=== PATIENT | male | born 1935 | race Hispanic/Latino ===

== ENCOUNTER 2019-01-02 16:18 | Inpatient (IN) | payer MEDICARE ==
[2019-01-02 17:54] LABS: BASO # 0.02 K/mm3 (0.0-2.0); BASO % 0.3 % (0.0-3.0); EOS # 0.1 (0.0-0.7); HEMOGLOBIN 15.7 g/dL (14.0-18.0); LYMPH # 1.1 (1.2-3.4); LYMPH % 16.6 % (22.0-35.0); MEAN CELL VOLUME 98.7 fl (80.0-105.0); MEAN CORPUSCULAR HEMOGLOBIN 33.8 pg (25.0-35.0); MEAN CORPUSCULAR HGB CONC 34.2 g/dl (31.0-37.0); MONO # 0.7 (0.1-0.6); MONO % 10.8 % (1.0-6.0); RBC 4.65 10^6/uL (3.5-6.1); RED CELL DISTRIBUTION WIDTH 12.8 % (11.5-14.5); WHITE BLOOD COUNT 6.5 10^3/uL (4.5-11.0)
[2019-01-02 18:06] LABS: ALB/GLOB RATIO 1.2 (1.1-1.8); ALBUMIN 4.2 g/dL (3.0-4.8); AST/SGOT 37 U/L (17-59); BLOOD UREA NITROGEN 15 mg/dL (7-21); GFR NON-AFRICAN AMERICAN > 60
[2019-01-02 18:07] LABS: INR 1.1; PROTHROMBIN TIME 12.2 SECONDS (9.4-12.5)
--- NOTE | 2019-01-02 18:08 | ED PDOC ---
Arrival/HPI - General Chief Complaint: Syncope Time Seen by Provider: 01/02/19 16:29 Historian: Patient - History of Present Illness Narrative History of Present Illness (Text): 01/02/19 18:02 83yo male with unknown pmhx bib EMS for complaint of syncope. Patient states he went to a pub to drink and after one and half bottle of beer he couldn't remember what happened, because he had a syncopal episode. States he had syncopal episode few months ago and was taken to [facility]. states he doesn't see a Doctor and not sure if he have any medical history. Other than chronic back pain he denies any current focal somatic complaint. Denies chest pain, palpiation, dizziness, nausea, abdominal pain, fever, chills, any other complaint. Past Medical History - Provider Review Nursing Documentation Reviewed: Yes - Psychiatric Hx Substance Use: No - Anesthesia Hx Anesthesia: No Hx Anesthesia Reactions: No Hx Malignant Hyperthermia: No Family/Social History - Physician Review Nursing Documentation Reviewed: Yes Family/Social History: Unknown Family HX Smoking Status: Light Smoker < 10 Cigarettes Daily Hx Alcohol Use: Yes Hx Substance Use: No Allergies/Home Meds Allergies/Adverse Reactions: Allergies No Known Allergies Allergy (Verified 01/02/19 16:37) Review of Systems - Physician Review All systems were reviewed & negative as marked: Yes - Review of Systems Constitutional: Normal Eyes: Normal ENT: Normal Respiratory: Normal Cardiovascular: Normal Gastrointestinal: Normal Genitourinary Male: Normal Musculoskeletal: Normal Skin: Normal Neurological: Other (Syncope) Endocrine: Normal Hemo/Lymphatic: Normal Psychiatric: Normal Physical Exam Vital Signs Reviewed: Yes Vital Signs Temp Pulse Resp BP Pulse Ox 01/02/19 16:36 97.9 F 82 18 146/76 95 Temperature: Afebrile Blood Pressure: Normal Pulse: Regular Respiratory Rate: Normal Appearance: Positive for: Well-Appearing, Non-Toxic, Comfortable Pain Distress: None Mental Status: Positive for: Alert and Oriented X 3 - Systems Exam Head: Present: Atraumatic, Normocephalic Pupils: Present: PERRL Extroacular Muscles: Present: EOMI Conjunctiva: Present: Normal Mouth: Present: Moist Mucous Membranes Neck: Present: Normal Range of Motion Respiratory/Chest: Present: Clear to Auscultation, Good Air Exchange. No: Respiratory Distress, Accessory Muscle Use Cardiovascular: Present: Regular Rate and Rhythm, Normal S1, S2. No: Murmurs Abdomen: No: Tenderness, Distention, Peritoneal Signs Back: Present: Normal Inspection Upper Extremity: Present: Normal Inspection. No: Cyanosis, Edema Lower Extremity: Present: Normal Inspection. No: Edema Neurological: Present: GCS=15, CN II-XII Intact, Speech Normal Skin: Present: Warm, Dry, Normal Color. No: Rashes Psychiatric: Present: Alert, Oriented x 3, Normal Insight, Normal Concentration Medical Decision Making ED Course and Treatment: 01/02/19 18:21 83yo male bib EMS for syncopal episode this afternoon. Pt was neurologically intact. He reported history of syncope few months ago and was seen at [facility]. Unable to remember what happened. He doesn't see a Doctor. Reported one episode of vomiting enroute to the ED. He otherwise denies any somatic complaint. EKG A-fib with PVC @ 86bpm. N-stemi PT denies history of Afib, He will be admitted for new onset A-fib and further neuro evaluation as a cause of his syncope. Labs Head CT CXR Labs was all unremarkable CXR NAD Head CT pending Case was LUDMILA Gonsalez while he was in ED and he saw pt by the bedside and accepted pt for admission. He requested Drs. Pal and Yordy consult. 01/02/2019 20:[address] IMPRESSION: 1. 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 2. There are two meningeal-based mass lesions versus foci of active hemorrhage seen within the subdural collection. 3. A small chronic right frontal subdural hematoma is noted. 4. Severe chronic microvascular disease. 5. Moderate-advanced age appropriate cerebral/cerebellar atrophy. 6. Atherosclerotic vascular plaquing within the carotid siphons bilaterally. Dictator: Graham Tabor MD 01/03/19 01:[address] findings was LUDMILA Beauchamp at 1938, Neurosurgeon relationship manager. He states they is nothing to do at this time. States he will recommend that pt should not be anticoagulated. PT remain AAO x3 and neurologically intact in ED Fingins was also LUDMILA Gonsalez and Dr. Benson. Dr. Benson recommends MRI in the morning. - RAD Interpretation Radiology Orders: 01/02/19 16:48 HEAD W/O CONTRAST [CT] Stat 01/02/19 16:49 CHEST PORTABLE [RAD] Stat Disposition/Present on Arrival - Present on Arrival Any Indicators Present on Arrival: No History of DVT/PE: No History of Uncontrolled Diabetes: No Urinary Catheter: No History of Decub. Ulcer: No History Surgical Site Infection Following: None - Disposition Have Diagnosis and Disposition been Completed?: Yes Diagnosis: Syncope, New onset a-fib, Subdural hematoma Disposition: HOSPITALIZED Disposition Time: 18:10 Patient Plan: Admission Patient Problems: Current Active Problems Problem Status Onset New onset a-fib Acute Subdural hematoma Acute Syncope Acute Condition: GUARDED
[2019-01-02 18:10] LABS: ALT/SGPT < 6 U/L (7-56)
[2019-01-02 18:17] LABS: TROPONIN I 0.02 ng/mL
[2019-01-02 20:58] LABS: PH,URINE 5.5 (4.7-8.0); URINE BILIRUBIN SMALL (NEGATIVE); URINE BLOOD NEGATIVE (NEGATIVE); URINE GLUCOSE (UA) NEGATIVE (NEGATIVE); URINE LEUKOCYTE ESTERASE NEGATIVE Leu/uL (NEGATIVE); URINE PROTEIN TRACE mg/dL (<30 mg/dL)
[2019-01-02 20:59] LABS: URINE APPEARANCE CLEAR (CLEAR); URINE COLOR DARK YELLOW (YELLOW)
[2019-01-02 21:17] LABS: BARBITURATES, UR NEGATIVE (NEGATIVE); BENZODIAZEPINES, UR NEGATIVE (NEGATIVE); OPIATES, UR NEGATIVE (NEGATIVE); PHENCYCLIDINE, UR NEGATIVE (NEGATIVE)
--- NOTE | 2019-01-02 23:46 | HP ---
DATE OF EXAM: 01/02/2019 HISTORY OF PRESENT ILLNESS: He is a nice 83-year-old man who had a syncopal episode after he had a drink at the pub. He could not remember what happened. He did have a syncopal episode a few months ago at [facility], but does not remember what they did either. He has history of chronic back pain from time to time, somatic complaints. Otherwise, he is fairly comfortable. SOCIAL HISTORY: He still smokes cigarettes. Does drink alcohol. No drugs. FAMILY HISTORY: Unknown. He has got really no history of himself that he knows of. Does not see doctors. REVIEW OF SYSTEMS: No acute vision or hearing changes. No shortness of breath. No cough. No chest pain or palpitations. No nausea, vomiting, constipation, or diarrhea. No problems going to the bathroom. No skin issues that he knows of. He had a syncopal episode. He is not dizzy now. He is not anxious. PHYSICAL EXAMINATION: VITAL SIGNS: Temperature 97.9, pulse 82, respiratory rate 18, blood pressure 146/76, and O2 sat 95%. GENERAL: He is well appearing, nontoxic, comfortable. Alert and oriented x3. HEENT: Head is atraumatic and normocephalic. Extraocular muscles are intact. Pupils equal and reactive to light and accommodation. Throat is moist. tongue midline. NECK: Supple. Thyroid midline. No palpable lymphadenopathy. HEART: Regular rate. Normal S1 and S2. LUNGS: Decreased breath sounds but clear to auscultation. ABDOMEN: Soft and nontender. Positive bowel sounds. No guarding, no rebound or CVA tenderness. EXTREMITIES: No edema. NEUROLOGIC: GCS 15. Cranial nerves II through XII grossly intact. Speech is normal. Alert and oriented x3. SKIN: Warm and dry. No apparent rashes or ulcers. DIAGNOSTIC DATA: He had some tests done. EKG shows AFib at 86 questionable NSTEMI history. He does not know anything about it. He has a CAT scan of the head that is pending. Chest x-ray was pending. He had some blood tests done. White count 6.5, hemoglobin 15.7, hematocrit 45.9, and platelets 201. INR is 1.1. Sodium 136, potassium 4.4, BUN 15, creatinine 1, GFR is greater than 60, sugar is 132, calcium 10, phosphorous 4.3, magnesium 2, total bili is 1.2, AST is 37, ALT is 6, alk phos is 79, and lactate dehydrogenase 380. Total creatine kinase is 59. Troponin I is 0.02, total protein 7.6, albumin is 4.2. Toxicology; alcohol level less than 10. IMPRESSION AND PLAN: He is going to have consults with Cardiology and Neurology. We will put him on a heart healthy diet, he will be on observation, we will put him on the monitor. He is here for syncopal episode and atrial fibrillation, and we will watch him very closely. We are waiting for the rest of tests to come back. Andres Gonsalez DO MTDD
[2019-01-03 00:57] VITALS: BMI 23.1
--- NOTE | 2019-01-03 04:21 | CP.PCM.PCO ---
<Glenys Yuan - Last Filed: 01/03/19 04:19> Addendum Addendum: 01/03/19 04:19 Update: Received Page from nurse regarding Patient with A-fib regarding EKG results: QRS pause of 2.02 seconds. Went to evaluate the Patient who is hemodynamically stable, and who is sleeping comfortably. Continue to monitor. Discussed with Dr. Stewart Yuan PGY1 <Gracie William - Last Filed: 01/04/19 06:22> Attending/Attestation - Attestation I have personally seen and examined this patient.: No I have fully participated in the care of the patient.: Yes I have reviewed all pertinent clinical information: Yes
[2019-01-03 07:31] LABS: HEMOGLOBIN 14.8 g/dL (14.0-18.0); MEAN CORPUSCULAR HEMOGLOBIN 33.4 pg (25.0-35.0); MEAN CORPUSCULAR HGB CONC 34.1 g/dl (31.0-37.0); MEAN PLATELET VOLUME 9.1 fl (7.0-11.0); RBC 4.43 10^6/uL (3.5-6.1); RED CELL DISTRIBUTION WIDTH 12.8 % (11.5-14.5); WHITE BLOOD COUNT 6.2 10^3/uL (4.5-11.0)
[2019-01-03 08:01] LABS: ALB/GLOB RATIO 1.2 (1.1-1.8); ALBUMIN 3.9 g/dL (3.0-4.8); ALT/SGPT 10 U/L (7-56); AST/SGOT 30 U/L (17-59); BLOOD UREA NITROGEN 15 mg/dL (7-21); CALCIUM 9.6 mg/dL (8.4-10.5); GFR NON-AFRICAN AMERICAN > 60
--- NOTE | 2019-01-03 08:25 | CARD ---
APPROVED REPORT Date of service: 01/02/2019 EKG Measurement Heart [id number] <Conclusion> Atrial fibrillation with premature ventricular or aberrantly conducted complexes Cannot rule out Inferior infarct, age undetermined Abnormal ECG
--- NOTE | 2019-01-03 08:29 | CT ---
Date of service: 01/02/2019 PROCEDURE: CT HEAD WITHOUT CONTRAST. HISTORY: AMS COMPARISON: None available. TECHNIQUE: Axial computed tomography images were obtained through the head/brain without intravenous contrast. Radiation dose: Total exam DLP = 896.41 mGy-cm. This CT exam was performed using one or more of the following dose reduction techniques: Automated exposure control, adjustment of the mA and/or kV according to patient size, and/or use of iterative reconstruction technique. FINDINGS: HEMORRHAGE: Mixed acute/chronic left frontal parietal subdural hematoma measuring roughly 6.6 by 10 point 0 millimeters. Mild mass-effect upon the left frontal and parietal lobe. Question old right frontal subdural hematoma. BRAIN: Mild atrophy. VENTRICLES: Unremarkable. No hydrocephalus. CALVARIUM: Unremarkable. PARANASAL SINUSES: Unremarkable as visualized. No significant inflammatory changes. MASTOID AIR CELLS: Unremarkable as visualized. No inflammatory changes. OTHER FINDINGS: None. IMPRESSION: Mixed acute/chronic left frontal parietal subdural hematoma measuring roughly 6.6 by 10 point 0 millimeters. Mild mass-effect upon the left frontal and parietal lobe. Question old right frontal subdural hematoma.
--- NOTE | 2019-01-03 09:25 | PN ---
DATE: 01/03/2019 SUBJECTIVE: He is resting comfortably in bed, slept fairly well. He is eating okay. He still is a little bit dizzy now and then. OBJECTIVE: VITAL SIGNS: He has a 97.7 temperature, 78 pulse 146/86 blood pressure, 18 respiratory rate, 94% O2 sat on room air. HEENT: Head is atraumatic, normocephalic. HEART: Regular rate. LUNGS: Decreased breath sounds. ABDOMEN: Soft. EXTREMITIES: No edema. DIAGNOSTIC TESTS: He did have an MRI of the brain showing subdural hematomas, meningioma, 2-second pause on the security monitor. ASSESSMENT AND PLAN: Waiting for cardio and neuro to see him, . He is currently on an aspirin and diet. We will get physical therapy and neuro surgery to see if there would be a plan for him to have a procedure done. He was here for syncope, atria fibrillation, pause, meningiomas and subdural hematomas on MRI. Andres Gonsalez DO MTDD
--- NOTE | 2019-01-03 09:31 | RAD ---
Date of service: 01/02/2019 HISTORY: admission COMPARISON: No prior. FINDINGS: LUNGS: No active pulmonary disease. PLEURA: No significant pleural effusion identified, no pneumothorax apparent. CARDIOVASCULAR: No aortic atherosclerotic calcification present. Normal cardiac size. No pulmonary vascular congestion. OSSEOUS STRUCTURES: No significant abnormalities. VISUALIZED UPPER ABDOMEN: Normal. OTHER FINDINGS: None. IMPRESSION: No active disease.
--- NOTE | 2019-01-03 11:15 | MRI ---
Date of service: 01/03/2019 PROCEDURE: MRI BRAIN WITHOUT CONTRAST HISTORY: subdural hematoma COMPARISON: CT of the head 01/02/2019 TECHNIQUE: Multiplanar, multisequence MR images of the brain were obtained without intravenous contrast enhancement. FINDINGS: HEMORRHAGE: There is a left sided parietal convexity subdural hematoma of mixed density consistent with an acute bleeding into a chronic subdural. There is a fluid fluid level. The collection measures 9.6 cm anterior to posterior and 1.4 cm in wide. DWI: No evidence of an acute or early subacute infarction. BRAIN PARENCHYMA: No mass effect or edema. Mild atrophy VENTRICLES: Unremarkable. No hydrocephalus. CRANIUM: Unremarkable. ORBITS: Grossly unremarkable. PARANASAL SINUSES/MASTOIDS: Clear VASCULAR SYSTEM: Skull base flow voids intact. OTHER FINDINGS: None. IMPRESSION: There is a left sided parietal convexity subdural hematoma of mixed density consistent with an acute bleeding into a chronic subdural. There is a fluid fluid level. The collection measures 9.6 cm anterior to posterior and 1.4 cm in wide. There is no significant mass effect.
--- NOTE | 2019-01-03 13:01 | CP.PCM.PCO ---
Physician Communication Note - Physician Communication Note Physician Communication Note: SYNCOPE WITH LARGE ACUTE ON CHRONIC LEFTSUBDURAL. NEUROSURG EVAL.
--- NOTE | 2019-01-03 13:45 | CP.PCM.CON ---
History of Present Illness - History of Present Illness History of Present Illness: dictated mild-moderate subacute SDH - marked atrophy - no mass effect Rec f/u CT 1 week Past Patient History - Past Social History Smoking Status: Light Smoker < 10 Cigarettes Daily - CARDIAC Hx Cardiac Disorders: Yes - PULMONARY Hx Respiratory Disorders: No - NEUROLOGICAL Hx Neurological Disorder: Yes (syncope ,brain bleed s/p fall 4 years ago) - HEENT Hx HEENT Problems: Yes Hx Cataracts: Yes (B/l surgery) - RENAL Hx Chronic Kidney Disease: No - ENDOCRINE/METABOLIC Hx Endocrine Disorders: No - HEMATOLOGICAL/ONCOLOGICAL Hx Blood Disorders: No - INTEGUMENTARY Hx Dermatological Problems: No - MUSCULOSKELETAL/RHEUMATOLOGICAL Hx Musculoskeletal Disorders: Yes Hx Fractures: Yes (ribs X5 times and Knee) - GASTROINTESTINAL Hx Gastrointestinal Disorders: No - GENITOURINARY/GYNECOLOGICAL Hx Genitourinary Disorders: No - PSYCHIATRIC Hx Substance Use: No - SURGICAL HISTORY Hx Surgeries: Yes Hx Cardiac Catheterization: Yes (X1 stent) Other/Comment: brain hemorrahage s/p surgery ,cateract surgery B/L - ANESTHESIA Hx Anesthesia: No Hx Anesthesia Reactions: No Hx Malignant Hyperthermia: No Meds Allergies/Adverse Reactions: Allergies Allergy/AdvReac Type Severity Reaction Status Date / Time No Known Allergies Allergy Verified 01/02/19 16:37 - Medications Medications: Current Medications Aspirin (Aspirin Chewable) 81 mg PO DAILY DUSTIN Results - Vital Signs Recent Vital Signs: Last Vital Signs Temp 97.9 F 01/03/19 12:00 Pulse 82 01/03/19 12:00 Resp 18 01/03/19 12:00 BP 105/68 01/03/19 12:00 Pulse Ox 94 L 01/03/19 05:48 - Labs Result Diagrams: 01/03/19 07:00 01/03/19 07:00 Labs: Laboratory Results - last 24 hr 01/02/19 01/02/19 01/02/19 17:45 17:45 17:45 WBC 6.5 RBC 4.65 Hgb 15.7 Hct 45.9 MCV 98.7 MCH 33.8 MCHC 34.2 RDW 12.8 Plt Count 201 MPV 9.0 Neut % (Auto) 70.3 H Lymph % (Auto) 16.6 L Baker % (Auto) 10.8 H Eos % (Auto) 2.0 Baso % (Auto) 0.3 Lymph # (Auto) 1.1 L Baker # (Auto) 0.7 H Eos # (Auto) 0.1 Baso # (Auto) 0.02 Absolute Neuts (auto) 4.57 PT 12.2 INR 1.10 APTT 29.0 Sodium 136 Potassium 4.4 Chloride 99 Carbon Dioxide 25 Anion Gap 17 BUN 15 Creatinine 1.0 Est GFR ( Amer) > 60 Est GFR (Non-Af Amer) > 60 Random Glucose 132 H Calcium 10.0 Phosphorus 4.3 Magnesium 2.0 Total Bilirubin 1.2 AST 37 ALT < 6 L Alkaline Phosphatase 79 Lactate Dehydrogenase 380 Total Creatine Kinase 59 Troponin I 0.02 Total Protein 7.6 Albumin 4.2 Globulin 3.4 Albumin/Globulin Ratio 1.2 Urine Color Urine Appearance Urine pH Ur Specific [place] Urine Protein Urine Glucose (UA) Urine Ketones Urine Blood Urine Nitrate Urine Bilirubin Urine Urobilinogen Ur Leukocyte Esterase Urine RBC Urine WBC Ur Epithelial Cells Urine Opiates Screen Urine Methadone Screen Ur Barbiturates Screen Ur Phencyclidine Scrn Ur Amphetamines Screen U Benzodiazepines Scrn U Oth Cocaine Metabols U Cannabinoids Screen Alcohol, Quantitative 01/02/19 01/02/19 01/02/19 17:45 20:30 20:30 WBC RBC Hgb Hct MCV MCH MCHC RDW Plt Count MPV Neut % (Auto) Lymph % (Auto) Baker % (Auto) Eos % (Auto) Baso % (Auto) Lymph # (Auto) Baker # (Auto) Eos # (Auto) Baso # (Auto) Absolute Neuts (auto) PT INR APTT Sodium Potassium Chloride Carbon Dioxide Anion Gap BUN Creatinine Est GFR ( Amer) Est GFR (Non-Af Amer) Random Glucose Calcium Phosphorus Magnesium Total Bilirubin AST ALT Alkaline Phosphatase Lactate Dehydrogenase Total Creatine Kinase Troponin I Total Protein Albumin Globulin Albumin/Globulin Ratio Urine Color Dark yellow Urine Appearance Clear Urine pH 5.5 Ur Specific [place] >= 1.030 Urine Protein Trace H Urine Glucose (UA) Negative Urine Ketones 15 H Urine Blood Negative Urine Nitrate Negative Urine Bilirubin Small H Urine Urobilinogen 1.0 H Ur Leukocyte Esterase Negative Urine RBC TEST NOT PERFORMED Urine WBC 5 - 10 H Ur Epithelial Cells 6 - 8 H Urine Opiates Screen Negative Urine Methadone Screen Negative Ur Barbiturates Screen Negative Ur Phencyclidine Scrn Negative Ur Amphetamines Screen Negative U Benzodiazepines Scrn Negative U Oth Cocaine Metabols Negative U Cannabinoids Screen Negative Alcohol, Quantitative < 10 01/03/19 01/03/19 07:00 07:00 WBC 6.2 RBC 4.43 Hgb 14.8 Hct 43.4 MCV 98.0 MCH 33.4 MCHC 34.1 RDW 12.8 Plt Count 200 MPV 9.1 Neut % (Auto) Lymph % (Auto) Baker % (Auto) Eos % (Auto) Baso % (Auto) Lymph # (Auto) Baker # (Auto) Eos # (Auto) Baso # (Auto) Absolute Neuts (auto) PT INR APTT Sodium 135 Potassium 4.4 Chloride 100 Carbon Dioxide 25 Anion Gap 14 BUN 15 Creatinine 0.7 L Est GFR ( Amer) > 60 Est GFR (Non-Af Amer) > 60 Random Glucose 97 Calcium 9.6 Phosphorus Magnesium Total Bilirubin 1.4 H AST 30 ALT 10 Alkaline Phosphatase 78 Lactate Dehydrogenase Total Creatine Kinase Troponin I Total Protein 7.4 Albumin 3.9 Globulin 3.4 Albumin/Globulin Ratio 1.2 Urine Color Urine Appearance Urine pH Ur Specific [place] Urine Protein Urine Glucose (UA) Urine Ketones Urine Blood Urine Nitrate Urine Bilirubin Urine Urobilinogen Ur Leukocyte Esterase Urine RBC Urine WBC Ur Epithelial Cells Urine Opiates Screen Urine Methadone Screen Ur Barbiturates Screen Ur Phencyclidine Scrn Ur Amphetamines Screen U Benzodiazepines Scrn U Oth Cocaine Metabols U Cannabinoids Screen Alcohol, Quantitative
--- NOTE | 2019-01-03 14:00 | CP.PCM.PCO ---
Physician Communication Note - Physician Communication Note Physician Communication Note: afib, pause, echo pending, will await cardiology recommendations.
--- NOTE | 2019-01-03 14:04 | CON ---
DATE OF CONSULTATION: 01/03/2019 CARDIOLOGY CONSULTATION HISTORY: The patient is an 83-year-old male, who had his third syncopal episode. This one was at a bar after drinking a pint of beer. The patient drinks chronically and can questionably consider alcoholic. He is on no medications. He sees no doctors. He denies previous cardiac history. He is only on aspirin a day. He denies diabetes mellitus. He denies hypertension. SOCIAL HISTORY: The patient denies smoking. REVIEW OF SYSTEMS: No seizure disorder. No angina. No heart attack. No edema in lower extremities. No dizziness. PHYSICAL EXAMINATION: VITAL SIGNS: Blood pressure 146/86, the heart rate is in the 70s. NECK: Negative JVD. LUNGS: Without rales. CARDIAC: Heart rate S1, S2. EXTREMITIES: Without edema. LABORATORY DATA: EKG shows atrial fibrillation with nonspecific ST-T changes. Troponin is negative x1. Glucose is 97, hemoglobin is 14.8. IMPRESSION: 1. Status post syncope x3. His workup at [facility] has been negative. 2. Alcoholism. 3. Atrial fibrillation, which is questionable duration time. PLAN: Given these findings, we will obtain an echocardiogram to evaluate his LV function. The patient cannot be anticoagulated given his history of recurrent syncope. We will continue his daily aspirin. Noah Scales MD
--- NOTE | 2019-01-03 17:20 | CARD ---
APPROVED REPORT Date of service: 01/03/2019 EXAM: Two-dimensional and M-mode echocardiogram with Doppler and color Doppler. INDICATION Syncope 2D DIMENSIONS Left Atrium (2D)4.1 (1.6-4.0cm)IVSd1.4 (0.7-1.1cm) LVDd3.4 (3.9-5.9cm)PWd1.4 (0.7-1.1cm) LVDs2.5 (2.5-4.0cm)FS (%) 25.9 % LVEF (%)51.9 (>50%) M-Mode DIMENSIONS Aortic Root4.10 (2.2-3.7cm)Aortic Cusp Exc.1.60 (1.5-2.0cm) Aortic Valve AoV Peak [id number]/Abram Peak GR.4mmHg Mitral Valve E/A ratio0.0 TDI E/Lateral E'0.0E/Medial E'0.0 Tricuspid Valve TR Peak [id number] [id number] Peak Gr.20mmHg [id number] LEFT VENTRICLE The left ventricle is normal size. There is mild concentric left ventricular hypertrophy. Left ventricle ejection fraction is borderline. No left ventricle thrombus noted on this study. RIGHT VENTRICLE The right ventricle is normal size. There is normal right ventricular wall thickness. The right ventricular systolic function is normal. ATRIA The left atrium is mildly dilated. The right atrium is mildly dilated. AORTIC VALVE The aortic valve is severely thickened. No aortic regurgitation is present. There is no aortic valvular stenosis. MITRAL VALVE The mitral valve is mildly thickened. There is no mitral valve regurgitation noted. There is no mitral valve stenosis. TRICUSPID VALVE There is trace to mild tricuspid regurgitation. PULMONIC VALVE There is trace pulmonic valvular regurgitation. GREAT VESSELS The aortic root is mildly to moderately enlarged. The IVC is normal in size and collapses >50% with inspiration. PERICARDIAL EFFUSION There is no pericardial effusion. <Conclusion> The left ventricle is normal size. There is mild concentric left ventricular hypertrophy. Left ventricle ejection fraction is borderline. No left ventricle thrombus noted on this study. The aortic root is mildly to moderately enlarged. The aortic valve is severely thickened.
--- NOTE | 2019-01-03 20:26 | CON ---
DATE: 01/03/2019 HISTORY OF PRESENT ILLNESS: This is an 83-year-old male with past medical history of syncope, fall, and drink alcohol and the patient had syncopal episode few months ago, was admitted in [facility]. He also has a history of chronic back pain and called to evaluate the patient. MRI of the head was done, which showed acute over chronic subdural hematoma. Neurosurgeon consult made, awaiting. The patient is sitting comfortably, not in distress. PAST MEDICAL HISTORY: As above. SOCIAL HISTORY: Smokes and drink. REVIEW OF SYSTEMS: A 10-point review of systems was negative except syncopal episode. PHYSICAL EXAMINATION: HEENT: Normocephalic and atraumatic. NECK: Supple. NEUROLOGIC: Cranial nerves II through XII were tested. Pupils reactive. EOMs intact. Visual field full. No facial asymmetry. Tongue midline. Motor examination; moves all the extremities spontaneously. Deep tendon reflexes are 1+. Both plantars downgoing. Sensory appears intact. Cerebellar gait normal. IMPRESSION AND PLAN: Syncope and subdural hematoma acute over chronic. Neurosurgical consult called. Workup in progress. Continue present management. We will follow up. Saqib Schwab MD
[2019-01-04 06:00] VITALS: O2SAT 96
[2019-01-04 08:38] LABS: HEMOGLOBIN 14.2 g/dL (14.0-18.0); MEAN CELL VOLUME 98.4 fl (80.0-105.0); MEAN CORPUSCULAR HGB CONC 33.6 g/dl (31.0-37.0); RBC 4.3 10^6/uL (3.5-6.1); RED CELL DISTRIBUTION WIDTH 12.9 % (11.5-14.5)
[2019-01-04 08:59] LABS: ALB/GLOB RATIO 1.1 (1.1-1.8); ALBUMIN 3.6 g/dL (3.0-4.8); ALT/SGPT 9 U/L (7-56); AST/SGOT 27 U/L (17-59); BLOOD UREA NITROGEN 11 mg/dL (7-21); CALCIUM 9.3 mg/dL (8.4-10.5); GFR NON-AFRICAN AMERICAN > 60
--- NOTE | 2019-01-04 12:44 | PN ---
DATE: 01/04/2019 CARDIOLOGY FOLLOWUP SUBJECTIVE: The patient is comfortable in bed. No shortness of breath. No chest pain. PHYSICAL EXAMINATION: VITAL SIGNS: Blood pressure 142/87 and heart rate is atrial fibrillation in the 80s. NECK: Negative JVD. LUNGS: Without rales. HEART: Reveals S1 and S2. EXTREMITIES: Without edema. LABORATORY DATA: Hemoglobin is 14.2. Chemistries are unremarkable. Echocardiogram reveals good LV function with thickened aortic valve, but no LV outflow obstruction and no aortic stenosis. CT scan reveals and MRI reveals a chronic as well as acute subdural hematoma, likely secondary to his falls. IMPRESSION: 1. Recurrent syncope. 2. Recurrent falls usually after an alcoholic binge. 3. No evidence for cardiac cause of his syncope. 4. Chronic atrial fibrillation which cannot be anticoagulated given his recurrent bleeds. Given these findings, I have discussed with the patient about his needs to abstain from alcohol. We will discontinue telemetry today. There is no further cardiac workup necessary. Noah Scales MD
[2019-01-04 13:36] VITALS: BP 128/73; PULSE 77; RESP 18; TEMP 97.5
--- NOTE | 2019-01-04 23:14 | DS ---
HISTORY OF PRESENT ILLNESS: He had a syncopal episode. He has got some alcoholism issues. 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 Neurosurgeon could not do any surgery on him. We cannot anticoagulate him because of his fall, so he has to take baby aspirin a day, he also is not to drink anymore which I think is his problem. PHYSICAL EXAMINATION: VITAL SIGNS: Temperature 97.8, pulse 83, blood pressure 142/87, respiratory rate 20, O2 sat 96% on room air. HEENT: Head is atraumatic and normocephalic. HEART: Regular rate. LUNGS: Decreased breath sounds, but clear. ABDOMEN: Soft. EXTREMITIES: No edema. HOSPITAL COURSE: He is walking fine in the room. He is doing well. He is going to go home on baby aspirin. He had lab tests. He has a white count 6, hemoglobin 14.2, hematocrit 42.3 with platelets 196. INR is 1.1. Sodium 135, potassium 4.1, BUN 11, creatinine 0.7, GFR greater than 60, sugar 102, calcium 9.3, total bili is 1.1, AST is 27, ALT is 9, and alk phos 66. Troponin I was 0.02, total protein 6.9. Urine tox screen was clean. Discussed with Cardiology, Neurosurgeon and Neurology. The plan is to discharge him home. He is not allowed to fall anymore. No brain surgery at this time. No alcohol at this time. On baby aspirin. Continue with aggressive treatment and care. Douglas Trevino should be in the office next week for evaluation and followup. Andres Gonsalez DO
--- NOTE | 2019-01-06 08:14 | CON ---
DATE: 01/03/2019 HISTORY OF PRESENT ILLNESS: Mr. Trevino is an 83-year-old gentleman who basically fell at a bar striking his head, was brought in to [facility], found to I believe be in atrial fibrillation, but also CT scan of the brain was done, which showed a [id number] subdural hematoma. Interviewing with Mr. Trevino, he is completely awake and lucid. He reports no complaints, not even headache, and is actually interested in going home. PAST MEDICAL HISTORY: His past medical history is most salient for having a right lisa hole drainage of a subdural hematoma approximately 4 years ago. The rest of his medical history, medications, allergies, etc., reviewed in the EMR. PHYSICAL EXAMINATION GENERAL: He is bright, awake, and alert. He is fully oriented. He follows all commands. NEUROLOGIC: Cranial nerves are all intact. He has no drift. He has 5/5 strength throughout. Normal sensation. LABORATORY DATA: CT of the brain shows a mixed density subdural hematoma. There is a question of some very small meningiomas in the same area although these also could certainly also be pockets of acute hemorrhage. The overall signs of the subdural is [id number]; however, the patient had profound diffuse atrophy and therefore there was basically no mass effect at all. IMPRESSION AND PLAN: Certainly nothing to be done at this point in time. My recommendations would be to check a followup CT in 7 to 10 days. Certainly, I would not advocate any anticoagulation. Blaise Crocker MD
== END 2019-01-04 13:56 | disposition home or self-care (01) | DRG 308 ==
LOC: ED 16:18 → OBSVTOIN 18:11 → ERH 18:11 → 2RSO 22:36
PROVIDERS: ADMIT Family Medicine; ATTEND Family Medicine
DX: I48.2 Chronic atrial fibrillation (principal); I62.03 Nontraumatic chronic subdural hemorrhage; I62.01 Nontraumatic acute subdural hemorrhage; F17.210 Nicotine dependence, cigarettes, uncomplicated; F10.20 Alcohol dependence, uncomplicated; R29.6 Repeated falls; Z86.011 Personal history of benign neoplasm of the brain; G89.29 Other chronic pain; M54.9 Dorsalgia, unspecified; G31.9 Degenerative disease of nervous system, unspecified; Z98.42 Cataract extraction status, left eye; Z98.41 Cataract extraction status, right eye

== ENCOUNTER 2019-01-19 16:27 | Inpatient (IN) | payer MEDICARE ==
--- NOTE | 2019-01-19 16:50 | ED PDOC ---
Arrival/HPI - General Chief Complaint: Trauma Time Seen by Provider: 01/19/19 16:31 Historian: Patient, EMS - History of Present Illness Time/Duration: Prior to Arrival Symptom Onset: Sudden Symptom Course: Unchanged Severity Level: Moderate Associated Symptoms (Text): 01/19/19 16:47 Patient reports that he was out celebrating [employer] and drinking very heavily. He tripped and fell in the street flat on his face. He suffered a large laceration over his right eyebrow.and there was a large abrasion over his nose with epistaxis. Unclear if there was loss of consciousness. He denies any chest pain or palpitations. No nausea or vomiting. No abdominal pain. No extremity trauma. He is ambulatory. He arrives via ambulance. There is a history of alcohol abuse. Past Medical History - Infectious Disease Hx of Infectious Diseases: None - Cardiac Hx Cardiac Disorders: Yes Other/Comment: cardiac problem - Pulmonary Hx Respiratory Disorders: No - HEENT Hx HEENT Disorder: Yes Hx Cataracts: Yes (B/l surgery) - Renal Hx Renal Disorder: No - Endocrine/Metabolic Hx Endocrine Disorders: No - Hematological/Oncological Hx Blood Disorders: No - Integumentary Hx Dermatological Disorder: No - Musculoskeletal/Rheumatological Hx Musculoskeletal Disorders: Yes Hx Fractures: Yes (ribs X5 times and Knee) - Gastrointestinal Hx Gastrointestinal Disorders: No - Genitourinary/Gynecological Hx Genitourinary Disorders: No - Psychiatric Hx Psychophysiologic Disorder: No Hx Substance Use: No - Surgical History Hx Cardiac Catheterization: Yes (X1 stent) Other/Comment: brain hemorrahage s/p surgery ,cateract surgery B/L - Anesthesia Hx Anesthesia: No Hx Anesthesia Reactions: No Hx Malignant Hyperthermia: No Family/Social History - Physician Review Nursing Documentation Reviewed: Yes Family/Social History: Unknown Family HX Smoking Status: Light Smoker < 10 Cigarettes Daily Hx Alcohol Use: Yes Frequency of alcohol use: Daily Hx Substance Use: No Allergies/Home Meds Allergies/Adverse Reactions: Allergies No Known Allergies Allergy (Verified 01/02/19 16:37) Home Medications: Home Meds Medication Instructions Recorded Confirmed Aspirin [Ecotrin] 81 mg PO DAILY 01/19/19 01/19/19 Review of Systems - Physician Review All systems were reviewed & negative as marked: Yes - Review of Systems Constitutional: absent: Fatigue, Fevers Respiratory: absent: SOB Cardiovascular: absent: Chest Pain, Palpitations Gastrointestinal: absent: Abdominal Pain, Nausea, Vomiting Neurological: Headache. absent: Dizziness, Focal Weakness Physical Exam Vital Signs Temp Pulse Resp BP Pulse Ox 01/19/19 16:40 97.6 F 83 18 128/76 97 Temperature: Afebrile Blood Pressure: Normal Pulse: Regular Respiratory Rate: Normal Appearance: Positive for: Well-Appearing, Non-Toxic, Comfortable Pain Distress: None Mental Status: Positive for: Alert and Oriented X 3 Finger Stick Blood Glucose: 105 - Systems Exam Head: Present: Normocephalic, Tenderness, Contusion, Swelling, Ecchymosis, Abrasion, Laceration (Right forehead laceration approximately 5 cm over the right eyebrow.) Pupils: Present: PERRL Extroacular Muscles: Present: EOMI Conjunctiva: Present: Normal Ears: Present: NORMAL TM, Normal Canal. No: Erythema, TM Bulging Mouth: Present: Moist Mucous Membranes Pharnyx: No: ERYTHEMA, EXUDATE, TONSILS ENLARGED Nose (External): Present: Abrasion, Contusion, Laceration, Other (Clinically no fracture. Epistaxis bilateral nares. Large abrasion over the bridge of the nose.) Nose (Internal): Present: No Active Bleeding (Dried blood bilateral nares.) Neck: Present: Normal Range of Motion, Paraspinal Tenderness. No: MIDLINE TENDERNESS Respiratory/Chest: Present: Clear to Auscultation, Good Air Exchange, Decreased Breath Sounds. No: Respiratory Distress, Accessory Muscle Use Cardiovascular: Present: Regular Rate and Rhythm, Normal S1, S2. No: Murmurs Abdomen: No: Tenderness, Distention, Peritoneal Signs, Rebound, Guarding Back: Present: Normal Inspection. No: CVA Tenderness, Midline Tenderness, Paraspinal Tenderness Upper Extremity: Present: Normal Inspection. No: Cyanosis, Edema Lower Extremity: Present: Normal Inspection. No: Edema Neurological: Present: GCS=15, CN II-XII Intact, Speech Normal, Motor Func Grossly Intact Skin: Present: Warm, Dry, Normal Color, Other (Abrasions and lacerations as above.). No: Rashes Psychiatric: Present: Alert, Oriented x 3, Normal Insight, Normal Concentration Medical Decision Making ED Course and Treatment: 01/19/19 17:05 EKG shows atrial fibrillation rate approximately [address] or T wave changes. 01/19/19 18:49 Laceration repair. The 5 cm right forehead laceration was prepped and draped in the usual sterile fashion using Betadine. Normal saline solution irrigation. 5 cc of 1% lidocaine with epinephrine was injected. The wound was closed with 4-0 Prolene sutures. Sterile dressing was applied. Patient tolerated the procedure well. 01/19/2019 18:[address] IMPRESSION: Small complex subdural hematoma left side mainly over the high convexity at the left parietal region. No significant effacement of the sulci or significant mass-effect. No acute fracture identified. Postsurgical changes skull right side. Clinical correlation and follow-up study recommended. Dictator: Thanh Lancaster MD 01/19/2019 18:[address] IMPRESSION: Mild fracture deformity of the nasal bones. Mild inflammatory changes paranasal sinuses. Dictator: Thanh Lancaster MD 01/19/2019 18:[address] IMPRESSION: Satisfactory alignment of the vertebral bodies. Diffuse advanced hypertrophic and degenerative change. Chronic disc disease multiple levels. No acute fracture. Dictator: Thanh Lancaster MD 01/19/19 19:10 Discussed in detail with Dr. Gonsalez who will admit to telemetry and consult with otolaryngology, neurosurgery, and neurology. 01/19/19 19:13 Discussed in detail with neurosurgeon . - RAD Interpretation Radiology Orders: 01/19/19 16:45 CERVICAL SPINE W/O CONTRAST [CT] Stat HEAD W/O CONTRAST [CT] Stat MAXILLOFACIAL W/O CONTRAST [CT] Stat Disposition/Present on Arrival - Present on Arrival Any Indicators Present on Arrival: No History of DVT/PE: No History of Uncontrolled Diabetes: No Urinary Catheter: No History of Decub. Ulcer: No History Surgical Site Infection Following: None - Disposition Have Diagnosis and Disposition been Completed?: Yes Diagnosis: Subdural hematoma, Alcohol intoxication Disposition: HOSPITALIZED Disposition Time: 19:10 Patient Plan: Admission, Telemetry Patient Problems: Current Active Problems Problem Status Onset Alcohol intoxication Acute Subdural hematoma Acute Condition: SERIOUS Forms: [employer] ([place])
[2019-01-19 17:57] LABS: BASO # 0.03 K/mm3 (0.0-2.0); BASO % 0.5 % (0.0-3.0); EOS # 0.2 (0.0-0.7); EOS % 4.2 % (1.5-5.0); HEMOGLOBIN 13.7 g/dL (14.0-18.0); LYMPH # 1.7 (1.2-3.4); LYMPH % 30.5 % (22.0-35.0); MEAN CELL VOLUME 98.3 fl (80.0-105.0); MEAN CORPUSCULAR HEMOGLOBIN 33.7 pg (25.0-35.0); MEAN CORPUSCULAR HGB CONC 34.3 g/dl (31.0-37.0); MEAN PLATELET VOLUME 8.9 fl (7.0-11.0); MONO # 0.5 (0.1-0.6); MONO % 9.9 % (1.0-6.0); RBC 4.07 10^6/uL (3.5-6.1); RED CELL DISTRIBUTION WIDTH 12.7 % (11.5-14.5); WHITE BLOOD COUNT 5.5 10^3/uL (4.5-11.0)
[2019-01-19 18:03] LABS: INR 1.06; PARTIAL THROMBOPLASTIN TIME 30.7 Seconds (26.9-38.3); PROTHROMBIN TIME 11.8 SECONDS (9.4-12.5)
[2019-01-19 18:05] LABS: ALBUMIN 3.5 g/dL (3.0-4.8); ALT/SGPT < 6 U/L (7-56); AST/SGOT 34 U/L (17-59); BLOOD UREA NITROGEN 10 mg/dL (7-21); CALCIUM 8.7 mg/dL (8.4-10.5); GFR NON-AFRICAN AMERICAN > 60
[2019-01-19 18:15] LABS: TROPONIN I < 0.01 ng/mL
[2019-01-19] MEDS ORDERED: Lidocaine 1%/Epinephrine 1:100000 30 ml vial IJ ONE (18:20)
[2019-01-19] MEDS ORDERED: Bacitracin 500 Units/gm Oint Foilpak UD ONE (18:47)
[2019-01-19] MEDS: Sodium Chloride 0.45% 1,000 ML IV SCH (22:34)
[2019-01-20 00:19] VITALS: BMI 24.3
--- NOTE | 2019-01-20 02:53 | HP ---
DATE OF EXAM: 01/19/2019 HISTORY OF PRESENT ILLNESS: I saw him the last time while he is in the hospital where he had a subdural hematoma. He is an 83-year-old white man who was drinking beer at [employer], drinking fairly heavily he told me, celebrating, he tripped and fell on the street, landing right on his face. He suffered a large laceration over his right eyebrow, large abrasion over his nose with epistaxis, not sure if there was consciousness or unconsciousness when he fell he does not now. No other complaints. He has got some questionable cardiac history. He is on baby aspirin right now. He has had bilateral cataract surgeries. He has brain hemorrhage, status post surgery for subdural hematoma. He had a cardiac stent placed at one time. FAMILY HISTORY: Unknown family history. SOCIAL HISTORY: Still smoke cigarettes, drinks heavily and frequently. No drugs. ALLERGIES: NO KNOWN DRUG ALLERGIES. MEDICATIONS: He only takes baby aspirin a day. REVIEW OF SYSTEMS: He has a facial nose and eye trauma. No chest pain or palpitation. No shortness of breath or cough. No abdominal pain. No nausea, vomiting, constipation, or diarrhea. He was not dizzy. He does have a headache. No focal weakness. He just tripped he said and fell on his face head. PHYSICAL EXAMINATION: VITAL SIGNS: He has a 97.6 temperature, 83 pulse, 18 respiratory rate, 128/76 blood pressure, and 97% O2 sat. GENERAL: He is alert in the rerie, little intoxicated, well-appearing, nontoxic, comfortable, alert and oriented x3. HEENT: His head is traumatic and normocephalic. Multiple tenderness, contusions and swelling and ecchymosis and abrasions and lacerations. Right forehead laceration approximately 5 cm over the right eyebrow, also laceration over the bridge of his nose. Extraocular muscles are intact. Pupils equally reactive to light. Throat is moist. Normal tympanic membranes. Moist throat. No erythema. He has an abrasion, contusion, and lacerations over the nose, large abrasion over the bridge of the nose. There is active bleeding over the nose, tenderness. HEART: Regular rate. Normal S1 and S2. LUNGS: Decreased breath sounds, but clear to auscultation with poor inspiration. No wheezes. No rhonchi. No rales. ABDOMEN: Soft and nontender. Positive bowel sounds. No guarding. No rebound. No CVA tenderness. EXTREMITIES: No extremities. NEUROLOGIC: GCS is 15. Cranial nerves II through XII grossly intact. Speech is normal. Abrasions and lacerations as above on his nose and forehead. Alert and oriented x3, but drunk. There is a 5 cm right forehead laceration, which had sutures placed. SKIN: Warm and dry. DIAGNOSTIC DATA: Head CT small complex subdural hematoma left side mainly over the high convexity of the left parietal region, mild fracture deformity of the nasal bones, mild inflammatory changes, paranasal sinuses. No acute fracture of the cervical spine. IMPRESSION AND PLAN: He is here with a fall, subdural hematoma, nasal fracture, and alcohol intoxication. He will be admitted for neurological evaluation, ENT evaluation, neurosurgical evaluation, physical therapy evaluation, and IV fluids. We will hold the aspirin until we know the hematoma has stopped bleeding and we will watch him closely. Andres Gonsalez DO MTDJohn
[2019-01-20 07:00] LABS: HEMOGLOBIN 14.2 g/dL (14.0-18.0); MEAN CORPUSCULAR HEMOGLOBIN 33.2 pg (25.0-35.0); MEAN CORPUSCULAR HGB CONC 34.2 g/dl (31.0-37.0); MEAN PLATELET VOLUME 8.9 fl (7.0-11.0); RBC 4.28 10^6/uL (3.5-6.1); RED CELL DISTRIBUTION WIDTH 12.8 % (11.5-14.5); WHITE BLOOD COUNT 6.7 10^3/uL (4.5-11.0)
[2019-01-20 07:39] LABS: ALBUMIN 3.5 g/dL (3.0-4.8); ALT/SGPT < 6 U/L (7-56); AST/SGOT 31 U/L (17-59); BLOOD UREA NITROGEN 8 mg/dL (7-21); CALCIUM 8.9 mg/dL (8.4-10.5); GFR NON-AFRICAN AMERICAN > 60
--- NOTE | 2019-01-20 09:31 | CP.PCM.PN ---
Subjective - Date & Time of Evaluation Date of Evaluation: 01/20/19 Time of Evaluation: 09:28 - Subjective Subjective: pt originally seen on last admission (01/03/19) CT today shows SDH chronic with acute component This ct actually looks slightly better than the on from 2 wks ago The SDH has no mass effect and as as stated on last evaluation there would be no benifit to remove it given its size Suggest pt needs ETOH counseling Objective - Vital Signs/Intake and Output Vital Signs (last 24 hours): Temp Pulse Resp BP Pulse Ox 98.4 F 83 18 156/95 H 97 01/20/19 05:57 01/20/19 05:57 01/20/19 05:57 01/20/19 05:57 01/20/19 05:57 Intake and Output: 01/20/19 01/20/19 06:59 18:59 Intake Total 960 Output Total 1200 Balance -240 - Medications Medications: Current Medications Amlodipine Besylate (Norvasc) 5 mg PO DAILY DUSTIN Folic Acid (Folic Acid) 1 mg PO DAILY DUSTIN Sodium Chloride (Sodium Chloride 0.45%) 1,000 mls @ 40 mls/hr IV .Q24H DUSTIN Last Admin: 01/19/19 22:34 Dose: 40 mls/hr Lorazepam (Ativan) 1 mg IVP Q6H PRN; Protocol PRN Reason: Symptoms of alcohol withdrawl Last Admin: 01/19/19 22:33 Dose: 1 mg Multivitamins (Thera Tab) 1 tab PO 0800 DUSTIN Thiamine HCl (Vitamin B1 Tab) 100 mg PO DAILY DUSTIN - Labs Labs: 01/20/19 06:10 01/20/19 06:10 PT 11.8 SECONDS (9.4-12.5) 01/19/19 17:30 INR 1.06 01/19/19 17:30 APTT 30.7 Seconds (26.9-38.3) 01/19/19 17:30
--- NOTE | 2019-01-20 09:46 | CT ---
Date of service: 01/19/2019 PROCEDURE: CT HEAD WITHOUT CONTRAST. HISTORY: Trauma COMPARISON: Comparison made with CT scan brain 01/02/2019. Comparison also made with prior MRI brain 01/03/2019. TECHNIQUE: Axial computed tomography images were obtained through the head/brain without intravenous contrast. Radiation dose: Total exam DLP = 882.93 mGy-cm. This CT exam was performed using one or more of the following dose reduction techniques: Automated exposure control, adjustment of the mA and/or kV according to patient size, and/or use of iterative reconstruction technique. FINDINGS: HEMORRHAGE: Redemonstrated is a small to medium-sized left-sided mixed attenuation subdural hematoma.. The left-sided collection exerts moderate mass effect with compressive effects on the left superior frontal and parietal lobes. Additionally, there are chronic appearing bifrontal extra-axial densities likely representing chronic subdural granulation tissue, residua from prior subdural hematomas BRAIN: Mild diffuse and confluent chronic periventricular white matter ischemic changes with multiple more discrete tiny chronic lacunar type infarcts scattered about deep and subcortical white matter as well as both basal nuclei less well seen on this study as compared to high-resolution MRI. Moderate to fairly significant generalized volume loss. Mild vascular calcifications both carotid siphons. VENTRICLES: No obstructive hydrocephalus CALVARIUM: Small right-sided frontoparietal lisa hole again noted. Calvarium otherwise intact. Mild right supraorbital and right frontal scalp contusion. PARANASAL SINUSES: Unremarkable as visualized. No significant inflammatory changes. MASTOID AIR CELLS: Unremarkable as visualized. No inflammatory changes. OTHER FINDINGS: Changes of buckle procedures and bilateral cataract surgery changes both globes.. IMPRESSION: There is a small to medium-sized subacute subdural hematoma which exerts mild mass effect on the left superior frontoparietal lobes. Additionally, there are apparent chronic appearing subdural granulation tissue changes in the frontal lobes bilaterally. Mild chronic white matter ischemic changes. Moderate to significant generalized volume loss. There is mild right supraorbital and frontal scalp contusion. Old right frontoparietal lisa hole. Changes of bilateral cataract surgery and bilateral buckle procedures.
--- NOTE | 2019-01-20 09:54 | CT ---
Date of service: 01/19/2019 PROCEDURE: CT MAXILLOFACIAL BONES WITHOUT CONTRAST HISTORY: trauma COMPARISON: Comparison made with concurrent CT scan of the brain. TECHNIQUE: Contiguous axial CT images of the maxillofacial bones were obtained. Coronal and sagittal reformats were generated. Radiation dose: Total exam DLP = 816.99 mGy-cm. This CT exam was performed using one or more of the following dose reduction techniques: Automated exposure control, adjustment of the mA and/or kV according to patient size, and/or use of iterative reconstruction technique. FINDINGS: NASAL BONES: Unremarkable. ORBITS: Changes of bilateral cataract surgery and bilateral buckle procedures again noted. Mild right supraorbital and frontal scalp swelling. PARANASAL SINUSES/ MASTOIDS: Minimal mucosal thickening present within the inferior margins both maxillary antra right greater than left. There is also minimal mucosal thickening seen within a few ethmoid air cells extending superiorly into the frontal sinus. MAXILLA: Maxilla is intact however note made of unerupted last left maxillary molar tooth maxilla otherwise intact MANDIBLE/ TEMPOROMANDIBULAR JOINTS: There is a right-sided unerupted maxillary molar tooth and incompletely erupted left maxillary molar tooth (wisdom teeth) SKULL BASE: Redemonstrated is a right frontoparietal lisa hole.. Mild right supraorbital and frontal scalp swelling. TEMPORAL BONES: Middle ears and mastoid grossly unremarkable... OTHER FINDINGS: Note made of incomplete fusion right parasagittal posterior arch of C1. Bifrontal extra-axial granulation tissue likely residual from chronic bilateral frontal subdural hematomas. Calcified atherosclerotic plaque changes both carotid bifurcations. Multilevel degenerative spondylosis upper cervical spine. IMPRESSION: No evidence of acute maxillofacial skeletal fractures. Left frontoparietal lisa hole again noted. There is mild right supraorbital and right frontal scalp swelling. Changes of bilateral cataract surgery and bilateral buckle procedures. There are unerupted left maxillary and right mandibular molar teeth an incompletely ruptured left maxillary molar tooth (wisdom teeth). Incomplete fusion right parasagittal posterior arch C1.
--- NOTE | 2019-01-20 09:58 | CARD ---
APPROVED REPORT Date of service: 01/19/2019 EKG Measurement Heart [id number] <Conclusion> Atrial fibrillation Abnormal QRS-T angle, consider primary T wave abnormality Abnormal ECG
--- NOTE | 2019-01-20 10:04 | CT ---
Date of service: 01/19/2019 PROCEDURE: CT Cervical Spine without contrast HISTORY: Trauma COMPARISON: None available. TECHNIQUE: Axial computed tomography images were obtained of the cervical spine without the use of intravenous contrast. Coronal and sagittal reformatted images were created and reviewed. Radiation dose: Total exam DLP = 566.07 mGy-cm. This CT exam was performed using one or more of the following dose reduction techniques: Automated exposure control, adjustment of the mA and/or kV according to patient size, and/or use of iterative reconstruction technique. FINDINGS: VERTEBRAE: No acute compression fractures nor retropulsed fragments however there are multilevel degenerative fusion changes. Vertebral bodies exhibit normal stature. Vertebral bodies and facets normally aligned. DISCS/SPINAL CANAL/NEURAL FORAMINA: . At the C2-C3 level, there is marked disc space narrowing with small amount of vacuum disc phenomena and moderate endplate eburnation. No disc herniation or significant disc bulge. Small irregular broad-based disc ridge complex contiguous with hypertrophic uncovertebral joints. Facets also hypertrophic left cheek. Changes result in mild central canal bilateral foraminal stenosis left greater than right.. At the C3-C4 level, there is disc space narrowing with small broad-based disc bulge ridge complex contiguous with hypertrophic uncovertebral joints. Facets also hypertrophic. Changes result in mild central canal stenosis. The exit foramina are also stenotic bilaterally. At the C4-C5 level, there is marked disc space narrowing with degenerative fusion changes. Small broad-based osteophytic ridge contiguous with hypertrophic uncovertebral joints. Facets also hypertrophic. Changes result in mild central canal stenosis. The exit foramina are stenotic bilaterally right more severely than the left. At the C5-C6 level, there is disc degenerative fusion. The uncovertebral joints are hypertrophic as are the facets. Central canal appears adequate. Exit foramina stenotic bilaterally.. At the C6-C7 level, there also marked disc space narrowing with what appears represent early degenerative fusion changes along the posterior disc margin. No disc herniation or significant disc bulge. The uncovertebral and facets are hypertrophic with mild right-sided foraminal narrowing. At the C7-T1 level, the disc space narrowing with vacuum disc phenomena. There also appears to be early posterior degenerative fusion changes. Central canal and exit foramina appear adequate. A PARASPINAL SOFT TISSUES: Unremarkable. OTHER FINDINGS: There appears to be some minimal biapical pleural thickening and adjacent parenchymal scarring in the right lung apex lung apices otherwise clear. Lung apices are otherwise clear IMPRESSION: No acute fractures. Multilevel degenerative spondylosis and multilevel degenerative fusion changes as described..
--- NOTE | 2019-01-20 12:26 | CP.PCM.PCO ---
Physician Communication Note - Physician Communication Note Physician Communication Note: ETOH, CIWA, SDH chronic with acute changes no intervention, PT rec AMANDA
[2019-01-20 13:21] LABS: HDL CHOLESTEROL 59 mg/dL (29-60)
--- NOTE | 2019-01-20 13:31 | CP.PCM.CON ---
History of Present Illness - History of Present Illness History of Present Illness: pt seen and examined he fell and hit his head causing laceration above brow and nasal bone fracture pt in minimal pain minimal shift noted pt can breathe well Review of Systems - Constitutional Constitutional: As Per HPI - EENT Eyes: As Per HPI Nose/Mouth/Throat: As Per HPI - Cardiovascular Cardiovascular: As Per HPI - Respiratory Respiratory: As Per HPI - Gastrointestinal Gastrointestinal: As Per HPI - Genitourinary Genitourinary: As Per HPI - Reproductive: Male Reproductive:Male: As Per HPI - Musculoskeletal Musculoskeletal: As Per HPI - Integumentary Integumentary: As Per HPI - Neurological Neurological: As Per HPI - Psychiatric Psychiatric: As Per HPI - Endocrine Endocrine: As Per HPI - Hematologic/Lymphatic Hematologic: As Per HPI Past Patient History - Infectious Disease Hx of Infectious Diseases: None - Past Social History Smoking Status: Never Smoked - CARDIAC Hx Cardiac Disorders: Yes Other/Comment: cardiac problem - PULMONARY Hx Respiratory Disorders: No - HEENT Hx HEENT Problems: Yes Hx Cataracts: Yes (B/l surgery) - RENAL Hx Chronic Kidney Disease: No - ENDOCRINE/METABOLIC Hx Endocrine Disorders: No - HEMATOLOGICAL/ONCOLOGICAL Hx Blood Disorders: No - INTEGUMENTARY Hx Dermatological Problems: No - MUSCULOSKELETAL/RHEUMATOLOGICAL Hx Musculoskeletal Disorders: Yes Hx Falls: Yes Hx Fractures: Yes (ribs X5 times and Knee) - GASTROINTESTINAL Hx Gastrointestinal Disorders: No - GENITOURINARY/GYNECOLOGICAL Hx Genitourinary Disorders: No Hx Prostate Problems: Yes (BPH) - PSYCHIATRIC Hx Psychophysiologic Disorder: No Hx Substance Use: No - SURGICAL HISTORY Hx Cardiac Catheterization: Yes (X1 stent) Other/Comment: brain hemorrahage s/p surgery ,cateract surgery B/L - ANESTHESIA Hx Anesthesia: No Hx Anesthesia Reactions: No Hx Malignant Hyperthermia: No Meds Allergies/Adverse Reactions: Allergies Allergy/AdvReac Type Severity Reaction Status Date / Time No Known Allergies Allergy Verified 01/02/19 16:37 - Medications Medications: Current Medications Amlodipine Besylate (Norvasc) 5 mg PO DAILY [facility] Last Admin: 01/20/19 09:53 Dose: 5 mg Folic Acid (Folic Acid) 1 mg PO DAILY [facility] Last Admin: 01/20/19 09:53 Dose: 1 mg Sodium Chloride (Sodium Chloride 0.45%) 1,000 mls @ 40 mls/hr IV .Q24H [facility] Last Admin: 01/19/19 22:34 Dose: 40 mls/hr Lorazepam (Ativan) 1 mg IVP Q6H PRN; Protocol PRN Reason: Symptoms of alcohol withdrawl Last Admin: 01/19/19 22:33 Dose: 1 mg Multivitamins (Thera Tab) 1 tab PO 0800 [facility] Thiamine HCl (Vitamin B1 Tab) 100 mg PO DAILY [facility] Last Admin: 01/20/19 09:53 Dose: 100 mg Physical Exam - Constitutional Appears: Well, Non-toxic - Head Exam Additional comments: laceration 4cm above rt brow excoriation nose, septum midline no hematoma, winsome: poor dentition no palpable fx neck: wnl - Eye Exam Eye Exam: EOMI, Normal appearance Pupil Exam: NORMAL ACCOMODATION - ENT Exam ENT Exam: Mucous Membranes Moist, Normal Exam - Neck Exam Neck exam: Positive for: Normal Inspection - Respiratory Exam Respiratory Exam: NORMAL BREATHING PATTERN Results - Vital Signs Recent Vital Signs: Last Vital Signs Temp 97.9 F 01/20/19 12:00 Pulse 92 H 01/20/19 12:00 Resp 19 01/20/19 12:00 BP 121/76 01/20/19 12:00 Pulse Ox 97 01/20/19 05:57 - Labs Result Diagrams: 01/20/19 06:10 01/20/19 06:10 Labs: Laboratory Results - last 24 hr 01/19/19 01/19/19 01/19/19 17:30 17:30 17:30 WBC 5.5 RBC 4.07 Hgb 13.7 L Hct 40.0 L MCV 98.3 MCH 33.7 MCHC 34.3 RDW 12.7 Plt Count 213 MPV 8.9 Neut % (Auto) 54.9 Lymph % (Auto) 30.5 Carson % (Auto) 9.9 H Eos % (Auto) 4.2 Baso % (Auto) 0.5 Lymph # (Auto) 1.7 Carson # (Auto) 0.5 Eos # (Auto) 0.2 Baso # (Auto) 0.03 Absolute Neuts (auto) 3.01 PT 11.8 INR 1.06 APTT 30.7 Sodium 132 Potassium 4.2 Chloride 96 L Carbon Dioxide 24 Anion Gap 16 BUN 10 Creatinine 0.6 L Est GFR ( Amer) > 60 Est GFR (Non-Af Amer) > 60 Random Glucose 108 Calcium 8.7 Magnesium 1.7 Total Bilirubin 0.6 AST 34 ALT < 6 L Alkaline Phosphatase 52 Lactate Dehydrogenase 463 Total Creatine Kinase 73 Troponin I < 0.01 D Total Protein 7.0 Albumin 3.5 Globulin 3.5 Albumin/Globulin Ratio 1.0 L Triglycerides Cholesterol HDL Cholesterol Alcohol, Quantitative 01/19/19 01/20/19 01/20/19 17:30 06:10 06:10 WBC 6.7 D RBC 4.28 Hgb 14.2 Hct 41.5 L MCV 97.0 MCH 33.2 MCHC 34.2 RDW 12.8 Plt Count 223 MPV 8.9 Neut % (Auto) Lymph % (Auto) Carson % (Auto) Eos % (Auto) Baso % (Auto) Lymph # (Auto) Carson # (Auto) Eos # (Auto) Baso # (Auto) Absolute Neuts (auto) PT INR APTT Sodium 136 Potassium 4.0 Chloride 102 Carbon Dioxide 27 Anion Gap 11 BUN 8 Creatinine 0.6 L Est GFR ( Amer) > 60 Est GFR (Non-Af Amer) > 60 Random Glucose 83 Calcium 8.9 Magnesium Total Bilirubin 0.9 AST 31 ALT < 6 L Alkaline Phosphatase 64 Lactate Dehydrogenase Total Creatine Kinase Troponin I Total Protein 7.1 Albumin 3.5 Globulin 3.6 Albumin/Globulin Ratio 1.0 L Triglycerides Cholesterol HDL Cholesterol Alcohol, Quantitative 186 H 01/20/19 01/20/19 08:50 08:50 WBC RBC Hgb Hct MCV MCH MCHC RDW Plt Count MPV Neut % (Auto) Lymph % (Auto) Carson % (Auto) Eos % (Auto) Baso % (Auto) Lymph # (Auto) Carson # (Auto) Eos # (Auto) Baso # (Auto) Absolute Neuts (auto) PT INR APTT Sodium Potassium Chloride Carbon Dioxide Anion Gap BUN Creatinine Est GFR ( Amer) Est GFR (Non-Af Amer) Random Glucose Calcium Magnesium 1.8 Total Bilirubin AST ALT Alkaline Phosphatase Lactate Dehydrogenase Total Creatine Kinase Troponin I Total Protein Albumin Globulin Albumin/Globulin Ratio Triglycerides 80 Cholesterol 163 HDL Cholesterol 59 Alcohol, Quantitative Assessment & Plan (1) Alcohol intoxication Status: Acute (2) Subdural hematoma Status: Acute (3) New onset a-fib Status: Acute (4) Syncope Status: Acute (5) Nasal bone fracture Status: Acute - Date & Time Date: 01/20/19 Time: 13:30
[2019-01-20 13:32] LABS: LDL CHOLESTEROL 82 mg/dL (0-129)
--- NOTE | 2019-01-20 19:09 | CON ---
DATE: 01/20/2019 HISTORY OF PRESENT ILLNESS: This is an 83-year-old white male with a past medical history of subdural hematoma, who was drinking beer at a [place] [employer], tripped and fell on the street, landed on the right side of the face and suffered a large laceration of the right eyebrow and also blood through the nose, did not lose consciousness as per patient. Status post bilateral cataract surgery and status post subdural hematoma surgery and had a cardiac stent placed in. PAST MEDICAL HISTORY: Coronary artery disease with a stent, subdural hematoma surgery, bilateral cataract surgery, and alcohol abuse. SOCIAL HISTORY: He does smoke and drinks heavily. ALLERGIES: NO KNOWN DRUG ALLERGY. PHYSICAL EXAMINATION HEENT: Normocephalic status. A laceration on the right eyebrow secondary to fall. NEUROLOGIC: Awake, oriented to self. Cranial nerves II through XII were tested. Pupils reactive. EOMs intact. Moves all the extremities equally. Tone normal. Deep tendon reflexes 1+. Both plantars are downgoing. Sensory appears intact. Cerebellar gait deferred. IMPRESSION: Subdural hematoma secondary to fall, new versus old. The patient was seen by neurosurgeon and no intervention was recommended. The patient is sitting comfortably, eating his lunch. We will follow up. Saqib Schwab MD
--- NOTE | 2019-01-20 20:19 | DS ---
HISTORY OF PRESENT ILLNESS: He is resting comfortably in bed. He slept fairly well last night, waiting for Neurosurgery to come see him today. He had fall and there is a question of another subdural hematoma. He was drinking at 180 plus alcohol level, fracture of nose has lacerations with stitches. He is feeling better this morning. PHYSICAL EXAMINATION: VITAL SIGNS: He has 98.4 temperature, 83 pulse, 156/95 blood pressure, we will make sure he is on blood pressure pills, 18 respiratory rate, and 97% O2 sat on room air. HEENT: Head is traumatic and normocephalic. HEART: Regular rate. LUNGS: Decreased breath sounds, but clear. ABDOMEN: Soft. EXTREMITIES: No edema. NEUROLOGIC: His whole face is black and blue, fracture of nose, over the bridge of the nose, there is a laceration over the right eye. There is a laceration with sutures. MEDICATIONS: He is currently on Ativan and IV fluids. LABORATORY DATA: He has a 6.7 white count, 14.2 hemoglobin, 41.5 hematocrit with 223 platelets. INR is 1.06. He had 136 sodium, potassium 4, BUN 8, creatinine 0.6, GFR greater than 60, sugar is 83, calcium is 8.9, and total bili is 0.9. AST is 31, ALT is 6, and alk phos is 64. Troponin I is less than 0.01. Total protein is 7.1. He had a 186 alcohol level yesterday. ASSESSMENT AND PLAN: We are awaiting for Ear, Nose, and Throat, Neurology, and Neurosurgery to see him. I am going to add Norvasc or amlodipine 5 mg daily, which he should be on from now on to get his blood pressure lower. He has to stop drinking and he is going to follow with me in the office if it is okay to discharge. If his ENT says it is okay, if Neuro says it is okay, if Neurosurgery says it is okay and Physical Therapy says he can walk without any issues, hopefully I will be taking care well by this afternoon to do. Sonido Gonsalez DO [facility] # [id number] MTDD
[2019-01-21] MEDS: Sodium Chloride 0.45% 1,000 ML IV SCH (01:03)
[2019-01-21 06:39] VITALS: O2SAT 97
[2019-01-21] MEDS ORDERED: Multivitamin Therapeutic Tab PO SCH (08:00)
--- NOTE | 2019-01-21 11:36 | PN ---
DATE: 01/21/2019 SUBJECTIVE: He was doing well. He was improving. Neurosurgery said no surgical evaluation. Neurology is happy with him. ENT said the followup pauses a 5 to 6 seconds, so now he is having a cardiological evaluation with Dr. Scales. MEDICATIONS: He is on IV fluids, Ativan, folic acid, Norvasc, multivitamin and vitamin B1. PHYSICAL EXAMINATION: GENERAL: He is comfortable on bed, he is eating well. VITAL SIGNS: He has a 97.8 temperature, 87 pulse, 150/86 blood pressure better with the Norvasc, 20 respiratory rate, 97% O2 sat on room air. HEAD: , normocephalic. Head is traumatic with nasal fracture and laceration. HEART: Regular rate at this time. LUNGS: Clear auscultation. ABDOMEN: Soft. EXTREMITIES: No edema. LABORATORY DATA: Sodium 136, potassium 4, BUN 8, creatinine 0.6, GFR is greater than 60, sugar is 83, calcium is 8.9, magnesium 1.8, total bilirubin is 0.9, AST is 31, ALT is alkaline phosphatase is 64, total protein is 7.1. Triglycerides are 80, cholesterol is 163. 6.7 white count, 14.2 hemoglobin, 41.5 hematocrit with 223 platelets. I will see with Dr. Scales pauses on the telemetry. Andres Gonsalez DO MTDJohn
[2019-01-21 12:31] VITALS: BP 105/71; PULSE 73; RESP 19; TEMP 97.4
--- NOTE | 2019-01-21 13:58 | CON ---
DATE OF CONSULTATION: 01/21/2019 CARDIOLOGY CONSULTATION HISTORY OF PRESENT ILLNESS: The patient is an 83-year-old male, who had another alcoholic binge with traumatic syncope and trauma to his hand from his fall. PAST MEDICAL HISTORY: The patient's past medical history includes chronic atrial fibrillation, which is documented, but cannot be anticoagulated due to his alcoholism and recurrent falls. He was admitted recently for the same thing. He is currently only on Norvasc for his blood pressure. The patient's past medical history also includes hypertension. He denies chest pain, denies shortness of breath. In addition, he was noted to have a subdural hematoma, which is felt to be chronic in nature from his recurrent falls. SOCIAL HISTORY: The patient is an alcoholic. REVIEW OF SYSTEMS: Fourteen-point review of systems is reviewed in detail. No other symptoms other than what was described above. PHYSICAL EXAMINATION: VITAL SIGNS: Blood pressure varies from 105-121 systolic, heart rate is in the 70s, atrial fibrillation. NECK: Negative JVD. LUNGS: Without rales. CARDIAC: Heart rate S1, S2. EXTREMITIES: Without edema. He has facial bruises throughout his nares as well as his face. Hemoglobin is 14.2. Chemistries, BUN and creatinine unremarkable. Cholesterol is 163. IMPRESSION: 1. Status post fall. 2. Head trauma. 3. Alcoholic binge. 4. Hypertension. 5. Atrial fibrillation with periods of bradycardia without hemodynamic significance. PLAN: Given these findings, I had an extensive discussion with the patient about his need to stop drinking. I have offered him to join alcohol[employer], in which he currently says he will think about it. No further cardiac testing is necessary at this time. Noah Scales MD
== END 2019-01-21 16:22 | disposition home or self-care (01) | DRG 87 ==
LOC: ED 16:27 → ERH 19:07 → 2RSO 21:12
PROVIDERS: ADMIT Family Medicine; ATTEND Family Medicine
DX: S06.5X0A Traumatic subdural hemorrhage without loss of consciousness, initial encounter (principal); S01.81XA Laceration without foreign body of other part of head, initial encounter; R04.0 Epistaxis; S02.2XXA Fracture of nasal bones, initial encounter for closed fracture; W01.0XXA Fall on same level from slipping, tripping and stumbling without subsequent striking against object, initial encounter; F10.129 Alcohol abuse with intoxication, unspecified; F17.210 Nicotine dependence, cigarettes, uncomplicated; Z79.82 Long term (current) use of aspirin; I25.10 Atherosclerotic heart disease of native coronary artery without angina pectoris; N40.0 Benign prostatic hyperplasia without lower urinary tract symptoms; S00.31XA Abrasion of nose, initial encounter; I10 Essential (primary) hypertension; I48.2 Chronic atrial fibrillation; Z95.5 Presence of coronary angioplasty implant and graft; Y92.410 Unspecified street and highway as the place of occurrence of the external cause; Z98.42 Cataract extraction status, left eye; Z98.41 Cataract extraction status, right eye; Y90.6 Blood alcohol level of 120-199 mg/100 ml